=== PATIENT | female | born 1960 | race Caucasian/White ===

== ENCOUNTER 2017-04-10 12:04 | Emergency (ER) | payer MEDICARE, OTHER ==
[~2017-04-10] VITALS: Ht 162.6 cm; Wt 58.0 kg
[~2017-04-10 12:04] MED LIST: ADDE5TAB PO; CYCL-36 PO; HYDR-3129 PO; LORA-474 PO; PREG25 PO; VENL75TA91 PO
[2017-04-10 12:06] VITALS: BP 220/97; PULSE 101; RESP 21; TEMP 98.4; O2SAT 100
[2017-04-10] MEDS ORDERED: ADDE30TA PO (12:41)
[2017-04-10] MEDS ORDERED: VENL100T PO (12:41)
[2017-04-10] MEDS ORDERED: LORA-474 PO (12:41)
[2017-04-10] MEDS ORDERED: ASPI-110 PO (12:42)
--- NOTE | 2017-04-10 12:46 | PD ---
HPI Chief Complaint: Edema Time Seen by Provider: 12:16 Travel History International Travel<30 days: No Contact w/Intl Traveler<30days: No Traveled to known affect area: No History of Present Illness HPI The patient was seen and examined in the presence of the nurse. This patient complains of swelling in her legs. Duration 3 days. Severity is moderate. No alleviating factors. She reports history of renal failure 6 months ago that resolved spontaneously. She also says that she smoked some crack cocaine recently. PFSH Past Medical History Depression: Yes Diminished Hearing: No Renal Failure: Yes (STARTED IN SEPTEMBER) Tetanus Vaccination: > 5 Years Influenza Vaccination: No ?: Not Past Surgical History Hysterectomy: Yes Other Surgery: Yes (FUNDIPLICATION) Social History Alcohol Use: Yes (OCC EVERY OTHER DAY 1 BEER) Tobacco Use: Yes (11/17 - 11/16 PPD) Substance Use: Yes (COCAINE 04/09, PAIN PILLS OCCASIONAL) Allergies-Medications (Allergen,Severity, Reaction): Coded Allergies: Penicillin (Verified Allergy, Intermediate, Rash, 04/10/17) Reported Meds & Prescriptions Reported Meds & Active Scripts Active Reported Aspirin 81 (Aspirin) 81 Mg Tabdr 81 Mg PO DIRECTED PRN Effexor (Venlafaxine HCl) 100 Mg Tab 150 Mg PO BID Ativan (Lorazepam) 1 Mg Tab 1 Mg PO BID PRN Adderall (Amphetamine-Dextroamphetamine) 30 Mg Tab 30 Mg PO BID Avoid late evening doses. Space doses at least 4 to 6 hours if more than once/day dosing. Review of Systems General / Constitutional: No: Fever Eyes: No: Visual changes HENT: No: Headaches Cardiovascular: Positive: Edema, No: Chest Pain or Discomfort Respiratory: No: Shortness of Breath Gastrointestinal: No: Abdominal Pain Genitourinary: No: Dysuria Musculoskeletal: Positive: Edema, Pain Skin: No Rash Neurologic: No: Weakness Psychiatric: Positive: Substance Abuse, No: Depression Endocrine: No: Polydipsia Hematologic/Lymphatic: No: Easy Bruising Physical Exam Narrative GENERAL: Well-nourished, well-developed patient with leg edema SKIN: Focused skin assessment reveals no rash and nodules. Skin is Warm and dry. HEAD: Atraumatic. Normocephalic. EYES: Pupils equal and round. No scleral icterus. No injection or drainage. ENT: No nasal bleeding or discharge. Mucous membranes pink and moist. NECK: Trachea midline. No JVD. CARDIOVASCULAR: Regular rate and rhythm. No murmur appreciated. RESPIRATORY: No accessory muscle use. Clear to auscultation. Breath sounds equal bilaterally. GASTROINTESTINAL: Abdomen soft, non-tender, nondistended. Hepatic and splenic margins not palpable. MUSCULOSKELETAL: No obvious deformities. No clubbing. No cyanosis. Symmetric edema from the midshin down bilaterally . NEUROLOGICAL: Awake and alert. No obvious cranial nerve deficits. Motor grossly within normal limits. Normal speech. PSYCHIATRIC: Anxious mood and affect; insight and judgment poor . Data Data Last Documented VS Vital Signs Date Time Temp Pulse Resp B/P Pulse Ox O2 Delivery O2 Flow Rate FiO2 04/10/17 13:56 85 156/83 04/10/17 12:06 98.4 21 100 Orders Iv Access Insert/Monitor (04/10/17 12:35) Complete Blood Count With Diff (04/10/17 12:35) Comprehensive Metabolic Panel (04/10/17 12:35) Labs Laboratory Tests Test 04/10/17 12:40 White Blood Count 9.4 TH/MM3 Red Blood Count 4.59 MIL/MM3 Hemoglobin 13.3 GM/DL Hematocrit 39.1 % Mean Corpuscular Volume 85.2 FL Mean Corpuscular Hemoglobin 28.9 PG Mean Corpuscular Hemoglobin 33.9 % Concent Red Cell Distribution Width 14.7 % Platelet Count 270 TH/MM3 Mean Platelet Volume 9.5 FL Neutrophils (%) (Auto) 80.0 % Lymphocytes (%) (Auto) 12.4 % Monocytes (%) (Auto) 3.1 % Eosinophils (%) (Auto) 3.8 % Basophils (%) (Auto) 0.7 % Neutrophils # (Auto) 7.5 TH/MM3 Lymphocytes # (Auto) 1.2 TH/MM3 Monocytes # (Auto) 0.3 TH/MM3 Eosinophils # (Auto) 0.4 TH/MM3 Basophils # (Auto) 0.1 TH/MM3 CBC Comment DIFF FINAL Differential Comment Sodium Level 142 MEQ/L Potassium Level 3.7 MEQ/L Chloride Level 106 MEQ/L Carbon Dioxide Level 27.7 MEQ/L Anion Gap 8 MEQ/L Blood Urea Nitrogen 17 MG/DL Creatinine 0.92 MG/DL Estimat Glomerular Filtration 63 ML/MIN Rate Random Glucose 116 MG/DL Calcium Level 9.5 MG/DL Total Bilirubin 0.3 MG/DL Aspartate Amino Transf 53 U/L (AST/SGOT) Alanine Aminotransferase 76 U/L (ALT/SGPT) Alkaline Phosphatase 420 U/L Total Protein 8.0 GM/DL Albumin 3.8 GM/DL MDM Medical Decision Making Medical Screen Exam Complete: Yes Emergency Medical Condition: Yes Medical Record Reviewed: Yes Differential Diagnosis Renal failure, liver failure, CHF Narrative Course I have reviewed the patient's electronic medical record. Last labs on file here are from 2012 with normal creatinine IV placed CBC is normal Metabolic profile is normal LFTs has minimally elevated LFTs not likely very significant She is to follow-up with her primary care and discuss her lab studies as well as what to do next. I recommended she elevate her legs and use low-sodium diet and wear knee-high compression stockings Stable for outpatient follow-up No clinical suspicion of CHF Diagnosis Primary Impression: Leg edema Additional Instructions: Wear knee-high compression stockings Use low-sodium diet Elevate legs The patient was advised to follow up with their physician and return if they worsen. Med/Other Pt SpecificInfo: Other Disposition: 01 DISCHARGE HOME Condition: Stable Scott Villanueva MD April 10, 2017 12:46
[2017-04-10 13:18] LABS: AUTOMATED NEUTROPHIL # 7.5 TH/MM3 (1.8-7.7); BASOPHIL # 0.1 TH/MM3 (0-0.2); BASOPHIL % 0.7 % (0.0-2.0); EOSINOPHIL # 0.4 TH/MM3 (0-0.4); EOSINOPHIL % 3.8 % (0.0-4.0); HEMATOCRIT 39.1 % (35.0-46.0); HEMO FLAGS DIFF FINAL; LYMPH % 12.4 % (9.0-44.0); LYMPHOCYTE # 1.2 TH/MM3 (1.0-4.8); MEAN CELL VOLUME 85.2 FL (80.0-100.0); MEAN CORPUSCULAR HEMOGLOBIN 28.9 PG (27.0-34.0); MEAN CORPUSCULAR HGB CONC 33.9 % (32.0-36.0); MONO % 3.1 % (0.0-8.0); PLATELET COUNT 270 TH/MM3 (150-450); RED BLOOD COUNT 4.59 MIL/MM3 (4.00-5.30); RED CELL DISTRIBUTION WIDTH 14.7 % (11.6-17.2); WHITE BLOOD COUNT 9.4 TH/MM3 (4.0-11.0)
[2017-04-10 13:28] LABS: ALT (GPT) 76 U/L (10-53); ANION GAP 8 MEQ/L (5-15); AST (GOT) 53 U/L (15-37); BICARBONATE 27.7 MEQ/L (21.0-32.0); BLOOD UREA NITROGEN 17 MG/DL (7-18); CHLORIDE 106 MEQ/L (98-107); GLOMERULAR FILTRATION RATE 63 ML/MIN (>89); POTASSIUM 3.7 MEQ/L (3.5-5.1); SODIUM (NA) 142 MEQ/L (136-145)
[2017-04-10 13:31] LABS: ALKALINE PHOSPHATASE 420 U/L (45-117); TOTAL BILIRUBIN ADULT 0.3 MG/DL (0.2-1.0)
[2017-04-10 13:56] VITALS: BP 156/83; PULSE 85
[2017-04-10 14:54] VITALS: BP 142/65
== END 2017-04-10 15:14 | disposition home or self-care (01) ==
LOC: NEPC 12:04
DX: R60.0 Localized edema (principal); F17.200 Nicotine dependence, unspecified, uncomplicated; Z87.448 Personal history of other diseases of urinary system; Z86.59 Personal history of other mental and behavioral disorders
CPT/HCPCS: 80053; 85025; 99283

== ENCOUNTER → 2017-10-28 | Outpatient (CLI) | payer MEDICARE, OTHER ==
[~2017-10-28] MED LIST changes: +ADDE30TA PO; -ADDE5TAB PO; +ASPI1TAB57 PO; -CYCL-36 PO; -HYDR-3129 PO; -PREG25 PO; +VENL100T PO; -VENL75TA91 PO
[2017-10-28 14:55] LABS: AUTOMATED NEUTROPHIL # 4.7 TH/MM3 (1.8-7.7); BASOPHIL # 0.1 TH/MM3 (0-0.2); BASOPHIL % 0.9 % (0.0-2.0); EOSINOPHIL # 0.2 TH/MM3 (0-0.4); EOSINOPHIL % 2.9 % (0.0-4.0); HEMATOCRIT 39.9 % (35.0-46.0); HEMO FLAGS DIFF FINAL; LYMPH % 27.8 % (9.0-44.0); MEAN CELL VOLUME 88.4 FL (80.0-100.0); MEAN CORPUSCULAR HEMOGLOBIN 31.3 PG (27.0-34.0); MEAN CORPUSCULAR HGB CONC 35.5 % (32.0-36.0); MONO % 4.4 % (0.0-8.0); PLATELET COUNT 231 TH/MM3 (150-450); RED BLOOD COUNT 4.51 MIL/MM3 (4.00-5.30); WHITE BLOOD COUNT 7.3 TH/MM3 (4.0-11.0)
[2017-10-28 15:18] LABS: BICARBONATE 28.5 MEQ/L (21.0-32.0); POTASSIUM 4.8 MEQ/L (3.5-5.1)
[2017-10-28 15:22] LABS: APTT (PATIENT) 23.3 SEC (24.3-30.1); INTERNATIONAL NORMALIZED RATIO 0.9 RATIO; PROTHROMBIN TIME - PATIENT 9.4 SEC (9.8-11.6)
--- NOTE | 2017-10-30 12:17 | EKG ---
Date Performed: 10/28/2017 Time Performed: 14:57:00 PTAGE: 57 years EKG: Sinus rhythm NORMAL ECG PREVIOUS TRACING : 04/10/2013 23.42 DOCTOR: Andrew Pacheco Interpretating Date/Time 10/30/2017 12:17:12
== END ==
LOC: CLAB 13:37
PROVIDERS: ATTEND Orthopaedic Surgery Orthopaedic Surgery of the Spine
DX: Z01.812 Encounter for preprocedural laboratory examination (principal); M48.56XA Collapsed vertebra, not elsewhere classified, lumbar region, initial encounter for fracture
CPT/HCPCS: 36415; 80048; 85025; 85610; 85730; 93005